=== PATIENT | female | born 2000 | race Caucasian/White ===

== ENCOUNTER 2021-09-01 22:08 | Emergency (ER) | payer SELFPAY ==
[~2021-09-01] VITALS: Ht 167.6 cm; Wt 113.4 kg
[2021-09-01] MEDS ORDERED: DOXYCYCLINE HY100 MG PO (23:30)
== END 2021-09-01 23:46 | disposition home or self-care (01) ==
LOC: ED 22:08
DX: L05.01 Pilonidal cyst with abscess (principal)
CPT/HCPCS: 99282

== ENCOUNTER 2021-11-08 10:53 | Emergency (ER) | payer OTHER ==
[~2021-11-08] VITALS: Ht 167.6 cm; Wt 113.4 kg
[~2021-11-08 10:53] MED LIST: DOXYCYCLINE HY100 MG PO
== END 2021-11-08 11:54 | disposition home or self-care (01) ==
LOC: ED 10:53
DX: R04.2 Hemoptysis (principal)
CPT/HCPCS: 99283